=== PATIENT | female | born 1935 | race Caucasian/White ===

== ENCOUNTER 2018-07-08 22:58 | Emergency (ER) | payer MEDICARE ==
[~2018-07-08] VITALS: Ht 157.5 cm; Wt 55.6 kg
[2018-07-08 23:05] VITALS: BP 113/61
[2018-07-09] MEDS ORDERED: dexamethasone 4mg tablet PO ONE ×2 (01:05→01:20)
[2018-07-09] MEDS ORDERED: PRED20TA PO (01:16)
[2018-07-09] MEDS ORDERED: EPIN0.3P3 IM (01:19)
[2018-07-09] MEDS ORDERED: famotidine 10mg tablet PO ONE (01:20)
[2018-07-09] MEDS ORDERED: diphenhydrAMINE 25mg capsule PO ONE (01:20)
[2018-07-09] MEDS ORDERED: famotidine 20mg tablet PO ONE (01:30)
== END 2018-07-09 01:46 | disposition home or self-care (01) ==
LOC: ER 22:58
DX: L27.2 Dermatitis due to ingested food (principal); J02.9 Acute pharyngitis, unspecified; Z79.899 Other long term (current) drug therapy
CPT/HCPCS: 99284; J8540; Q0163